=== PATIENT | male | born 1965 | race Caucasian/White ===

== ENCOUNTER → 2019-09-05 | Outpatient (CLI) | payer BC | LOC: MRI 07:04 | DX: M47.816 Spondylosis without myelopathy or radiculopathy, lumbar region (principal); M51.26 Other intervertebral disc displacement, lumbar region; M48.062 Spinal stenosis, lumbar region with neurogenic claudication; M47.817 Spondylosis without myelopathy or radiculopathy, lumbosacral region ==

== ENCOUNTER → 2019-10-04 | Outpatient (CLI) | payer BC | LOC: RAD 10:50 | DX: M43.16 Spondylolisthesis, lumbar region (principal); M25.78 Osteophyte, vertebrae ==

== ENCOUNTER 2019-10-25 10:34 | Day surgery (SDC) | payer BC ==
[2019-10-18 08:39] LABS: HEMATOCRIT 43.1 % (42.0-52.0); HEMOGLOBIN 14.3 gm/dL (14.0-18.0); MCH 31.7 pg (26.0-34.0); MCHC 33.2 g/dL (28.0-37.0); MCV 95.6 fL (80.0-100.0); PLATELET COUNT 269 thou/uL (150-400); RBC 4.51 mil/uL (4.50-6.00); RDW 12.9 % (10.5-14.5); WBC 7.4 thou/uL (4.0-11.0)
[2019-10-18 08:52] LABS: ALBUMIN 3.4 g/dL (3.4-5.0); CALCIUM 9.1 mg/dL (8.5-10.1); CREATININE 0.9 mg/dL (0.7-1.3); POTASSIUM 4.1 mmol/L (3.5-5.1); TOTAL BILIRUBIN 0.3 mg/dL (<0.1-1.0); TOTAL PROTEIN 7.6 g/dL (6.4-8.2)
[2019-10-18 09:04] LABS: ABSOLUTE NEUTROPHILS 5.5 thou/uL (1.4-8.2); PLATELET ESTIMATE NORMAL
[~2019-10-25] VITALS: Ht 177.8 cm; Wt 73.9 kg
--- NOTE | ~2019-10-25 | H ---
[facility] [place] [address] HISTORY AND PHYSICAL Name: DIVINE MASON Room #: PRE [facility] M.R.#: [id number] Admission: Attend Phys: Uziel Choi MD Discharge: Date of : 61 Report #: [id number] THIS REPORT FOR: cc: Tyree Putnam,Uziel Pedroza MD ~ CC: Uziel Putnam DATE OF SERVICE: 10/25/2019 This is ____, COMMISSARY SUPERINTENDENT, dictating a preop history and physical for Dr. Uziel Choi. HISTORY OF PRESENT ILLNESS: The patient is a pleasant 54-year-old man who is having difficulty with low back pain and left leg pain. The pain tends to radiate to his left buttock and the posterolateral thigh to the knee. The problem started about a year ago. He rates his pain 7/10. The pain is constant. Leaning forward helps. Sitting helps. 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 He is taking ibuprofen as needed. He had 8 weeks of physical therapy without significant improvement. PAST MEDICAL HISTORY: COPD, hypertension, shingles, diabetes. PAST SURGICAL HISTORY: He denies previous surgery. CURRENT MEDICATIONS: Glucophage, lisinopril, atorvastatin, bisoprolol. FAMILY HISTORY: Diabetes, hypertension. ALLERGIES: METHYL KETONES. 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 . Smokes 1-1/2 packs per day. Drinks 3 beers per day. REVIEW OF SYSTEMS: A 12-point review of systems was performed and is noncontributory except that mentioned above. PHYSICAL EXAMINATION: GENERAL: Alert, pleasant, in no acute distress. HEENT: Head normocephalic, atraumatic. SKIN: Warm and dry. MUSCULOSKELETAL: Lumbar paraspinal muscle bulk is normal, restricted range of motion of the lumbar spine, [id number] tenderness of the lower lumbar spine with palpation, normal range of motion of the lower extremities bilaterally. [address] [address] HISTORY AND PHYSICAL Name: DIVINE MASON Room #: PRE [facility] M.R.#: [id number] Admission: Attend Phys: Uziel Choi MD Discharge: Date of : 61 Report #: [id number] EXTREMITIES: No clubbing, cyanosis or edema. NEUROLOGIC: Alert and oriented x 3, normal recent and remote memory, strength is 5/5 in the bilateral lower extremities except 4+/5 left EHL, sensory was intact to light touch in the lower extremities bilaterally, reflexes were present and symmetric in the lower extremities bilaterally, positive straight leg raising on the left, negative straight leg raising on the right, normal gait. IMAGING: I reviewed a lumbar MRI scan from 09/05/2019. The principal abnormality is on the left at L4-L5 with posterior facet joint synovial cyst, which indents the thecal sac and is associated with severe lumbar spinal stenosis. I also reviewed lumbar flexion and extension x-rays. I did not see significant motion. ASSESSMENT AND PLAN: He has a severe lumbar spinal stenosis and synovial cyst at L4-L5 on the left, along with left lumbar radicular symptoms and weakness. I have recommended decompressive surgery at L4-L5 on the left with removal of synovial cyst to widely open the canal from that approach. I spoke with him about the surgery including the technique, the risk, and the expected postoperative course. He understands and would like to go ahead. By: 13 37 Uziel Choi MD /nt
--- NOTE | ~2019-10-25 | O ---
[facility] [place] [address] OPERATIVE REPORT Name: DIVINE MASON Room #: [facility]-[address] [place] [address] M.R.#: [id number] Admission: 10/25/19 Attend Phys: Uziel Choi MD Discharge: Date of : 61 Report #: [id number] THIS REPORT FOR: cc: Tyree Putnam,Uziel Pedroza MD ~ CC: Uziel Putnam DATE OF SERVICE: 10/25/2019 PREOPERATIVE DIAGNOSIS: Synovial cyst, L4-L5, left with severe lumbar spinal stenosis. POSTOPERATIVE DIAGNOSIS: Synovial cyst, L4-L5, left with severe lumbar spinal stenosis. OPERATION PERFORMED: Hemilaminotomy, L4-L5 with removal of synovial cyst and decompression of the nerve root. The operation was done with a multimodality monitoring including EMG and SSEP, use of fluoroscopy as well as microscopic dissection. DONALDO Nelson assisted throughout the operation with the exposure, the decompression and microdissection as well as the closure. OPERATIVE INDICATIONS: The patient is a pleasant 54-year-old who developed intractable back and left leg pain and was found to have the above-mentioned findings on imaging studies. After failing conservative measures, surgery was recommended. I explained to him that very often synovial cyst occurs where there is motion and we did do flexion, extension films and there was no significant motion on those films. I therefore recommended a simple microdecompression with removal of synovial cyst alone. He does understand that in the future he may develop motion at this level and require an instrumented fusion. DESCRIPTION OF PROCEDURE: Following general endotracheal anesthesia, the patient was positioned prone on the Nate table. Lumbar region prepped and draped in standard fashion. AUGUSTINE hose and AV impulse boots were applied for DVT prophylaxis. Microscope was draped. Fluoroscopy was draped in the field. Monitoring was established. Ancef 2 grams given less than 1 hour prior to initiation of surgery. Using fluoroscopic guidance, a midline incision was made directly over the L4-L5 interspace. I dissected down through skin, subcutaneous tissue, reflected the paraspinal muscles and placed a [place] microdisk retractor, confirming my position fluoroscopically throughout. I then brought in a high speed air drill and bur down a generous hemilaminotomy. The ligamentum flavum was thickened. In some areas, there was a bony degeneration [address] [address] OPERATIVE REPORT Name: DIVINE MASON Room #: 150-5 [facility]..#: [id number] Admission: 10/25/19 Attend Phys: Uziel Choi MD Discharge: Date of : 61 Report #: [id number] and it was densely scarred to the underlying dura. Quite far superiorly and inferiorly, I performed a partial foraminotomy and then I began to work through the ligament to decompress the dura and the exiting root. I was able to obtain a plane dorsal to the dura and opened this and was able to free up and remove the synovial cyst in 2 pieces. I then worked and removed this calcified ligament as much as possible. There were a few small pieces of ligament, which were left densely adherent to the underlying dura, but they were not causing any problem. There was no pressure, etc. The dura was pulsating nicely and it moved laterally. I then explored carefully. I felt that the region was very free. I irrigated copiously with antibiotic solution. Hemostasis was excellent. I did use small amounts of bone wax during the case for any bone bleeding. I irrigated and removed the retractor, obtained hemostasis in the muscle, irrigated again and closed the wound in layers with absorbable suture and skin was closed with 4-0 subcuticular stitch. The operation went very well. I was quite pleased with the surgery. By: [id number] Uziel Choi MD /nt
[~2019-10-25 10:34] MED LIST: CENTRUM SILVER1 EAC7 PO; GLUCOPHAGE1000 MG PO; LIPITOR 10 MG10 M1 PO; LISINOPRIL40 MG PO; ZIAC 5-6.25 MG1 EACH PO
[2019-10-25 12:17] VITALS: BP 131/74
[2019-10-25] MEDS ORDERED: PERCOCET 5-3251 EACH PO (15:05)
[2019-10-25] MEDS ORDERED: ROBAXIN 750 MG750 MG PO (15:06)
[2019-10-25] MEDS ORDERED: COLACE100 MG PO (15:06)
[2019-10-25 15:32] VITALS: BP 131/74
--- NOTE | 2019-10-27 15:32 | EKG ---
[facility] [place] [address] ELECTROCARDIOGRAM REPORT Name: DIVINE MASON Room #: [facility]P [facility].#: [id number] Admission: 10/25/19 Attend Phys: Uziel Choi MD Discharge: 10/25/19 Date of : 61 Report #: [id number] THIS REPORT FOR: cc: Tyree Putnam James A. DO Lundgren, Craig H. MD [facility] ~ THIS REPORT FOR: //name// [facility] Test Date: 2019-10-18 Test Time: 08:29:33 Pat Name: DIVINE MASON Department: Room: Gender: Check Airman: alfonso : 1965 Requested By: Uziel Choi Order Number: [id number] MD: Jace Fields Measurements Intervals Cooks Rate: 72 P: 86 CO: 172 QRS: 62 QRSD: 97 T: 70 QT: 367 QTc: 402 Interpretive Statements Sinus rhythm No significant abnormality No previous ECG available for comparison Electronically Signed On 10-18-2019 9:20:55 BATTERY ASSEMBLER by Jace Fields [email or web address] <ELECTRONICALLY SIGNED> By: Jace Fields MD, [facility] 10/18/19919 8 8 Jace Fields MD, [facility] /EPI
--- NOTE | 2019-10-27 16:07 | PATH ---
[facility] [place] [address] [address] PATHOLOGY RPT PROCEDURE Name: MARTIN MASON Room #: DEP [facility] M.R.#: [id number] Admission: 10/25/19 Date of : 61 Discharge: 10/25/19 Report #: [id number] Path Case #: [id number] [facility] Accession Number: [id number] . 01 Material submitted: . vertebral column - SYNOVIAL CYST L4-5 . 01 Clinical history: . Herniated disc lumbar 4 through 5 . 02 Diagnosis: Synovial cyst L4-5, laminectomy and cystectomy: - Fragments comprised of dense fibrous tissue associated with calcifications, chronic inflammation as well as myxoid changes. Clinically synovial cyst. (IUV:pit 10/27/2019) QTP 10/27/2019 1225 Local . 02 Electronically signed: . Danita Mtz MD, Pathologist NPI- [id number] . 01 Gross description: . The specimen is received in formalin, labeled "Martin Mason, synovial cyst L4-5". Received are multiple segments of pale salguero to light salguero fibrous tissue admixed with thick mucoid material measuring 3.2 x 2.6 x 0.7 cm in aggregate dimensions. The specimen is submitted representatively in cassette A1. (CAA; 10/26/2019) QAC/QAC 10/26/2019 1155 Local . 02 Pathologist provided ICD-10: M71.38 . 02 CPT . 332510 Specimen Comment: A courtesy copy of this report has been sent to [phone], [phone] Specimen Comment: [phone] Specimen Comment: Report sent to / DR IRAHETA Performed at: [address] [id number] MD Lauro Villarreal MD Phone: [phone] Performed at: [address] [id number] [address] [address] PATHOLOGY RPT PROCEDURE Name: MARTIN MASON Room #: DEP [facility] M.Nataliia.#: [id number] Admission: 10/25/19 Date of : 61 Discharge: 10/25/19 Report #: [id number] Path Case #: [id number] MD Danita Mtz MD Phone: [phone]
== END 2019-10-25 16:00 | disposition home or self-care (01) ==
LOC: OR 10:34 → TBA 15:03 → OR 16:00
PROVIDERS: Neurological Surgery
DX: M48.062 Spinal stenosis, lumbar region with neurogenic claudication (principal); M71.38 Other bursal cyst, other site; I10 Essential (primary) hypertension; E11.9 Type 2 diabetes mellitus without complications; J44.9 Chronic obstructive pulmonary disease, unspecified; E78.00 Pure hypercholesterolemia, unspecified; F17.210 Nicotine dependence, cigarettes, uncomplicated; Z98.890 Other specified postprocedural states; Z79.899 Other long term (current) drug therapy; Z82.49 Family history of ischemic heart disease and other diseases of the circulatory system; Z83.3 Family history of diabetes mellitus
CPT/HCPCS: 50010; 50101; 50144; 50402; 50503; 50515; 50704; 50850; 51609; 51687; 51779; 53210; 54118; 55106; 56455; 56526; 56528; 56532; 56805; 62110; 62900; 70005